=== PATIENT | male | born 1960 | race African-American/Black ===

== ENCOUNTER 2020-02-09 16:54 | Emergency (ER) | payer OTHER ==
[~2020-02-09] VITALS: Ht 185.4 cm; Wt 103.9 kg
[2020-02-09] MEDS ORDERED: CITRATE OF MAG296 M1 PO ×2 (20:18→20:21)
[2020-02-09 20:30] VITALS: BP 152/90
== END 2020-02-09 20:30 | disposition home or self-care (01) ==
LOC: ER 16:54
DX: K59.00 Constipation, unspecified (principal)